=== PATIENT | female | born 1985 | race Caucasian/White ===

== ENCOUNTER 2019-01-06 20:10 | Emergency (ER) | payer BC, SELFPAY ==
[2019-01-06] MEDS ORDERED: Ibuprofen 800 MG TAB ONE (20:42)
[2019-01-06] MEDS ORDERED: Ondansetron ODT 4 MG TAB ONE (22:50)
== END 2019-01-06 23:39 | disposition home or self-care (01) ==
LOC: MADERS 20:10
DX: A08.4 Viral intestinal infection, unspecified (principal)
CPT/HCPCS: 87804; 99284; Q0162

== ENCOUNTER 2020-01-16 18:32 | Emergency (ER) | payer SELFPAY ==
[2020-01-16] MEDS ORDERED: Oseltamivir 75 MG CAP ONE (21:15)
== END 2020-01-16 21:19 | disposition home or self-care (01) ==
LOC: MADERS 18:32
DX: J11.1 Influenza due to unidentified influenza virus with other respiratory manifestations (principal); F41.9 Anxiety disorder, unspecified; F32.9 Major depressive disorder, single episode, unspecified
CPT/HCPCS: 99283

== ENCOUNTER 2020-06-21 13:20 | Emergency (ER) | payer OTHER, SELFPAY ==
[2020-06-23 12:16] LABS: SARS-CoV-2 MS2 Positive; SARS-CoV-2 N Gene Negative; SARS-CoV-2 S Gene Negative; SARS-CoV-2 by NAA Not Detected (NotDetected); SARS-CoV-2 orf1ab Negative
== END 2020-06-21 14:15 | disposition home or self-care (01) ==
LOC: MADERS 13:20
DX: J02.9 Acute pharyngitis, unspecified (principal); R05 Cough; Z20.828 Contact with and (suspected) exposure to other viral communicable diseases; F41.9 Anxiety disorder, unspecified; F32.9 Major depressive disorder, single episode, unspecified
CPT/HCPCS: 87635; 99283; U0003